=== PATIENT | male | born 1965 | race Caucasian/White ===

== ENCOUNTER → 2020-10-10 | Outpatient (CLI) | payer OTHER, BC | LOC: KOH-I 13:22 | DX: S46.011A Strain of muscle(s) and tendon(s) of the rotator cuff of right shoulder, initial encounter (principal); M54.41 Lumbago with sciatica, right side; Z88.2 Allergy status to sulfonamides; M51.36 Other intervertebral disc degeneration, lumbar region | CPT/HCPCS: 72110; 73030; 73502 ==

== ENCOUNTER 2020-12-28 10:22 | Emergency (ER) | payer BC ==
[~2020-12-28] VITALS: Ht 177.8 cm; Wt 122.0 kg
== END 2020-12-28 14:50 | disposition home or self-care (01) ==
LOC: ER1 10:22
DX: Z23 Encounter for immunization (principal); U07.1 COVID-19; I10 Essential (primary) hypertension
CPT/HCPCS: 99284; M0243; U0002